=== PATIENT | female | born 1945 | race Caucasian/White ===

== ENCOUNTER 2022-09-01 09:48 | Emergency (ER) | payer MEDICARE, OTHER ==
--- NOTE | 2022-09-01 10:31 | ED Physician Documentation ---
History of Present Illness - Stated complaint Stated Complaint: VERTIGO, L ARM NUMBESS - Chief complaint Chief Complaint: General - History obtained from History obtained from: Patient - Additonal information Additional information: 77-year-old woman who is very healthy albeit has not seen a doctor in about 20 years developed vertigo that is nonpositional about 2 weeks ago. At the time she was traveling to [facility] and was seen at a hospital in [place] there and had a CT and MRI done without pertinent positive findings. It is not clear if the CT was with or without contrast or CT angiography. Subsequently she was noted to have elevated blood pressures and was started on hydrochlorothiazide and and sent home. She has persistent vertigo. She now notes that she cannot hear out of the left ear, the left arm is clumsy and she has difficulty walking. She feels like the left side of her face is numb. 3 days ago she was switched from HCTZ to lisinopril and that is when the facial numbness started. She denies headache. No history of vertigo. Meclizine has been ineffective. Review of Systems Ten Systems: 10 systems reviewed and negative Constitutional: denies: Fever, Chills Ears: reports: Loss of hearing. denies: Drainage/discharge Nose: denies: Rhinorrhea / runny nose Throat: denies: Sore throat PD PAST MEDICAL HISTORY - Present Medications Home Medications: Ambulatory Orders Medication Instructions Recorded Confirmed Atorvastatin Calcium 40 mg PO DAILY #14 tablet 09/01/22 - Allergies Allergies/Adverse Reactions: Allergies Allergy/AdvReac Type Severity Reaction Status Date / Time No Known Drug Allergies Allergy Verified 09/01/22 10:07 PD ED PE NORMAL - Vitals Vital signs reviewed: Yes - General General: Alert and oriented X 3, No acute distress - HEENT HEENT: PERRL, Ears normal (TMs are normal), Pharynx benign, Other (She has nystagmus looking in either direction.) - Neck Neck: Supple, no meningeal sign, No bony TTP - Cardiac Cardiac: RRR, No murmur - Respiratory Respiratory: No respiratory distress, Clear bilaterally - Abdomen Abdomen: Normal bowel sounds, Soft, Non tender - Back Back: No CVA TTP, No spinal TTP - Derm Derm: Normal color, Warm and dry - Neuro Neuro: Alert and oriented X 3, No motor deficit, Other (She has ataxia both the left upper and lower extremity with maintained strength. She has partial numbness of the left face.) Eye Opening: Spontaneous Motor: Obeys Commands Verbal: Oriented GCS Score: 15 Results - Vitals Vitals: Vital Signs - 24 hr 09/01/22 09/01/22 10:04 10:40 Temperature 36.9 C Heart Rate 103 H 85 Respiratory 16 14 Rate Blood Pressure 188/123 H 166/100 H O2 Saturation 98 97 Oxygen O2 Source Room air - EKG (time done) 1133 Rate: Rate (enter#) (79) Rhythm: NSR, LAE Mcgraws: LAD Intervals: Normal CT QRS: Normal Ischemia: Non specific changes - Labs Labs: Laboratory Tests 09/01/22 09/01/22 09/01/22 10:35 10:35 10:35 WBC 7.7 RBC 5.56 H Hgb 16.3 H Hct 48.5 H MCV 87.2 MCH 29.3 MCHC 33.6 RDW 12.6 Plt Count 265 MPV 11.0 H Neut # (Auto) 5.5 Lymph # (Auto) 1.4 L [place] # (Auto) 0.6 Eos # (Auto) 0.2 Baso # (Auto) 0.0 Absolute Nucleated RBC 0.00 Nucleated RBC % 0.0 PT 10.9 INR 1.0 Sodium 137 Potassium 3.2 L Chloride 104 Carbon Dioxide 22 Anion Gap 11.0 BUN 22 H Creatinine 0.8 Estimated GFR (MDRD) 70 L Glucose 185 H Calcium 9.3 Magnesium 2.2 Total Bilirubin 0.8 AST 18 ALT 11 Alkaline Phosphatase 65 Total Protein 6.8 Albumin 3.7 Globulin 3.1 Albumin/Globulin Ratio 1.2 - Rads (name of study) Ct Head Radiology: Final report received, EMP read indepedently, See rad report PD Medical Decision Making - ED course ED course: 77-year-old woman presents with her son for evaluation of ongoing vertigo now associated with ataxia in the left upper and lower extremity. She also has truncal ataxia on exam and nystagmus. Despite the negative MRI at the onset of her symptoms, these findings are very concerning for posterior CVA. Subsequently her son was able to find some records from the previous ED visit in [place]. She did have CT angiography so I do not see any point in repeating angiography studies today. Unfortunately because the holiday is being observed today we do not have MRI which would of course be the preferred test for her symptoms consistent with posterior stroke. 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 We will let her have permissive hypotension hypertension for the next couple of weeks, add a statin and aspirin. Given that the stroke is completed there is no indication for admission to the hospital but she will need intensive outpatient physical therapy and she has follow-up scheduled with a nurse practitioner in [place] next week. We administered a walker here and she did fine with that. 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 Hopefully your symptoms will improve but I do recommend starting physical therapy which I have written an order for. Follow-up with nurse practitioner Bubba next week as scheduled. In addition to the prescription for the anticholesterol medication you should also take a baby aspirin a day. You will need an MRI and follow-up but given that we see the lesion on CT no rose to doing that. You should restart the lisinopril in about 2 weeks. Return for new or worsening symptoms. NIHSS - Time Time: 10:20 - Level of Consciousness Level of consciousness: (0) Alert, Keenly responsive LOC Questions: (0) Answers both Q's correct LOC Commands: (0) Performs both correctly - Gaze Best Gaze: (0) Normal - Visual Visual: (0) No loss - Facial Palsy Facial Palsy: (0) Normal, symmetrical movement - Motor Arms (both separate) Motor Arm (right): (0) No drift Motor Arm (left): (0) No drift - Motor Legs (both separate) Motor Leg (right): (0) No drift Motor Leg (left): (0) No drift - Limb Ataxia Limb Ataxia: (2) Present in 2 limbs - Sensory Sensory: (1) [id number] loss - Best Language Best Language: (0) No aphasia - Dysarthria Dysarthria: (0) Normal - Extinction and Inattention (formally neg Extinction and inattention: (0) No abnormality - Total Score/Results Total Score/Result: 3
[2022-09-01 10:43] LABS: BASOPHILS % (AUTO) 0.5 %; EOSINOPHILS # (AUTO) 0.2 10^3/uL (0.0-0.7); EOSINOPHILS % (AUTO) 2.8 %; HCT - HEMATOCRIT 48.5 % (37.0-47.0); HGB - HEMOGLOBIN 16.3 g/dL (12.0-16.0); LYMPHOCYTES # (AUTO) 1.4 10^3/uL (1.5-3.5); LYMPHOCYTES % (AUTO) 18.3 %; MEAN CORPUSCULAR HEMOGLOBIN 29.3 pg (27.0-31.0); MEAN CORPUSCULAR HGB CONC 33.6 g/dL (32.0-36.0); MEAN CORPUSCULAR VOLUME 87.2 fL (81.0-99.0); MONOCYTES # (AUTO) 0.6 10^3/uL (0.0-1.0); MONOCYTES % (AUTO) 7.5 %; NEUTROPHILS # (AUTO) 5.5 10^3/uL (1.5-6.6); NEUTROPHILS % (AUTO) 70.8 %; PLT - PLATELET COUNT 265 10^3/uL (130-450); RED BLOOD COUNT 5.56 10^6/uL (4.20-5.40); RED CELL DISTRIBUTION WIDTH 12.6 % (12.0-15.0); WHITE BLOOD COUNT 7.7 x10^3/uL (4.8-10.8)
[2022-09-01 10:50] LABS: PT - PROTHROMBIN TIME 10.9 secs (9.9-12.6)
[2022-09-01 10:56] LABS: ALBUMIN 3.7 g/dL (3.2-5.5); ALBUMIN/GLOBULIN RATIO 1.2 (1.0-2.2); BILIRUBIN,TOTAL 0.8 mg/dL (0.2-1.0); CALCIUM 9.3 mg/dL (8.5-10.3); CREATININE 0.8 mg/dL (0.4-1.0); MAGNESIUM 2.2 mg/dL (1.7-2.8); POTASSIUM 3.2 mmol/L (3.5-5.0); TOTAL PROTEIN 6.8 g/dL (6.7-8.2)
--- NOTE | 2022-09-01 11:44 | CT Report ---
PROCEDURE: HEAD WO INDICATIONS: cva sx TECHNIQUE: Noncontrast 4.5 mm thick angled axial sections acquired from the foramen magnum to the vertex. For r adiation dose reduction, the following was used: automated exposure control, adjustment of mA and/or kV according to patient size. COMPARISON: None. FINDINGS: Image quality: Excellent. CSF spaces: Basal cisterns are patent. No extra-axial fluid collections. Ventricles are normal in size and shape. Brain: No midline shift. No intracranial masses or hemorrhage. Lockhart-white matter interface is norm al. Skull and face: Calvarium and visualized facial bones are intact, without suspicious lesions. Sinuses: Visualized sinuses and mastoids are clear. IMPRESSION: No acute intracranial finding. Reviewed by: Franky Chao MD on 09/01/2022 11:43 AM PST Approved by: Franky Chao MD on 09/01/2022 11:43 AM [facility] Station ID: [id number]
[2022-09-01 12:49] VITALS: BP 140/88
== END 2022-09-01 12:48 | disposition home or self-care (01) ==
LOC: ED 09:48
DX: I63.442 Cerebral infarction due to embolism of left cerebellar artery (principal); R29.703 NIHSS score 3; R03.0 Elevated blood-pressure reading, without diagnosis of hypertension
CPT/HCPCS: 36415; 80053; 83735; 85025; 85610; 93005; 99284

== ENCOUNTER 2022-09-20 09:32 | Outpatient (CLI) | payer MEDICARE, OTHER ==
--- NOTE | 2022-09-25 12:56 | MRI Report ---
PROCEDURE: BRAIN WO INDICATIONS: FACIAL WEAKNESS LATE EFFECT OF STROKE TECHNIQUE: Noncontrast axial T1 spin echo, axial T2 fast spin echo, sagittal and axial FLAIR, coronal T2 fast sp in echo, axial gradient echo, axial diffusion and ADC through the brain. COMPARISON: Head CT 09/01/2022 FINDINGS: Increased T2/FLAIR signal intensity with T2 shine through on the diffusion weighted images and develo ping ADC pseudonormalization, consistent with a late subacute infarct. No additional focus of restric fredy diffusion or increased DWI signal intensity. Mild global cerebral volume loss. Moderate chronic m icrovascular ischemic changes. No unexpected intracranial susceptibility. No significant orbital abno rmality. Paranasal sinuses and mastoid air cells predominantly clear. IMPRESSION: T2 hyperintense signal abnormality in the left cerebellar hemisphere and left inferior cerebellar ped uncle would be consistent with a late subacute infarct although an intra-axial neoplasm could cause a similar appearance. Recommend obtaining postcontrast follow-up T1-weighted MRI sequences. Reviewed by: Franky Chao MD on 09/25/2022 12:55 PM PST Approved by: Franky Chao MD on 09/25/2022 12:55 PM PST Station ID: [id number]
== END 2022-09-20 09:33 | disposition home or self-care (01) ==
LOC: DI 09:32
PROVIDERS: ATTEND Nurse Practitioner Acute Care
DX: I69.392 Facial weakness following cerebral infarction (principal)

== ENCOUNTER 2022-10-09 09:11 | Outpatient (CLI) | payer MEDICARE, OTHER ==
[2022-10-09 14:24] LABS: BASOPHILS # (AUTO) 0.1 10^3/uL (0.0-0.1); BASOPHILS % (AUTO) 0.7 %; EOSINOPHILS # (AUTO) 0.6 10^3/uL (0.0-0.7); EOSINOPHILS % (AUTO) 8.8 %; HCT - HEMATOCRIT 48.9 % (37.0-47.0); HGB - HEMOGLOBIN 15.5 g/dL (12.0-16.0); LYMPHOCYTES # (AUTO) 1.5 10^3/uL (1.5-3.5); LYMPHOCYTES % (AUTO) 22.4 %; MEAN CORPUSCULAR HEMOGLOBIN 29.2 pg (27.0-31.0); MEAN CORPUSCULAR HGB CONC 31.7 g/dL (32.0-36.0); MEAN CORPUSCULAR VOLUME 92.3 fL (81.0-99.0); MEAN PLATELET VOLUME 11.6 fL (7.9-10.8); MONOCYTES # (AUTO) 0.5 10^3/uL (0.0-1.0); MONOCYTES % (AUTO) 6.6 %; NEUTROPHILS # (AUTO) 4.2 10^3/uL (1.5-6.6); NEUTROPHILS % (AUTO) 61.2 %; PLT - PLATELET COUNT 293 10^3/uL (130-450); RED CELL DISTRIBUTION WIDTH 13.1 % (12.0-15.0); WHITE BLOOD COUNT 6.8 x10^3/uL (4.8-10.8)
[2022-10-09 15:06] LABS: ALBUMIN 3.7 g/dL (3.2-5.5); ALBUMIN/GLOBULIN RATIO 1.1 (1.0-2.2); ALKALINE PHOSPHATASE 157 IU/L (42-121); ALT ALANINE AMINOTRANSFERASE 23 IU/L (10-60); AST ASPARTATE AMINOTRANSFERASE 23 IU/L (10-42); BILIRUBIN,TOTAL 0.9 mg/dL (0.2-1.0); BUN - BLOOD UREA NITROGEN 11 mg/dL (6-20); CALCIUM 10.1 mg/dL (8.5-10.3); CARBON DIOXIDE - CO2 25 mmol/L (21-32); CHLORIDE 107 mmol/L (101-111); CHOL/HDL RATIO 3.8 (<4.4); CHOLESTEROL 191 mg/dL; CREATININE 0.7 mg/dL (0.4-1.0); GFR - MDRD 81 (>89); GLUCOSE 111 mg/dL (70-100); HDL CHOLESTEROL 50 mg/dL; LDL CHOLESTEROL,CALCULATED 114 mg/dL; LDL/HDL RATIO 2.3 (<4.4); POTASSIUM 4.4 mmol/L (3.5-5.0); SODIUM 143 mmol/L (135-145); TOTAL PROTEIN 7.1 g/dL (6.7-8.2); TRIGLYCERIDES 133 mg/dL; VLDL CHOLESTEROL 27 mg/dL
[2022-10-09 15:18] LABS: THYROID STIMULATING HORMONE 1.13 uIU/mL (0.34-5.60)
[2022-10-09 21:03] LABS: ESTIMATED AVERAGE GLUCOSE 128 mg/dL (70-100); HEMOGLOBIN A1c% 6.1 % (4.27-6.07)
== END 2022-10-09 09:12 | disposition home or self-care (01) ==
LOC: LAB.S 09:11
PROVIDERS: ATTEND Nurse Practitioner Acute Care
DX: I10 Essential (primary) hypertension (principal); Z13.228 Encounter for screening for other metabolic disorders; Z13.220 Encounter for screening for lipoid disorders; Z13.1 Encounter for screening for diabetes mellitus; Z13.29 Encounter for screening for other suspected endocrine disorder; Z13.0 Encounter for screening for diseases of the blood and blood-forming organs and certain disorders involving the immune mechanism
CPT/HCPCS: 36415; 80053; 80061; 83036; 83721; 84443; 85025

== ENCOUNTER 2022-10-15 11:43 | Outpatient (CLI) | payer MEDICARE, OTHER ==
[2022-10-15 12:18] LABS: CREATININE 0.8 mg/dL (0.4-1.0)
[2022-10-15] MEDS ORDERED: GADOBUTROL 7.5 MMOL/7.5 ML VIAL ONE (12:47)
[2022-10-15] MEDS ORDERED: GADOBUTROL 7.5 MMOL/7.5 ML VIAL IVP ONE (15:26)
--- NOTE | 2022-10-15 18:32 | MRI Report ---
PROCEDURE: MRI brain with and without contrast INDICATIONS: FACIAL PALSY CONTRAST: gadavist 6.4 TECHNIQUE: Noncontrast axial T1 spin echo, axial T2 fast spin echo, sagittal and axial FLAIR, coronal T2 fast sp in echo, axial gradient echo, axial diffusion and ADC through the brain. After the administration of contrast, axial and coronal T1 spin echo with fat saturation through the brain. COMPARISON: MRI brain 09/20/2022, 08/20/2022 FINDINGS: Image quality: Excellent. CSF spaces: Basal cisterns are patent. No extra-axial fluid collections. Ventricles are normal in size and shape. Brain: Centered on the left middle cerebral peduncle, there is increasing T2 signal again with T2 sh ine through artifact noted on the diffusion sequence. No appreciable enhancement. There is involvemen t of the root entry zone of the left 7th and 8th cranial nerve complex at the cerebellopontine angle. Otherwise, no midline shift. Normal intravascular flow voids are present. 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 Skull and face: Calvarial marrow is normal in signal. Orbits appear normal. Sinuses: Sinuses and mastoids appear clear. IMPRESSION: 1. Increasing irregular T2 signal in the left middle cerebral peduncle without significant enhancemen t. Given the chronology and location, low-grade glioma is a concern, although sequelae of infarct is also possible. Consider follow-up MR spectroscopy and/or three-month follow-up. Reviewed by: Madan Brumfield MD on 10/15/2022 5:30 PM [place] Approved by: Madan Brumfield MD on 10/15/2022 5:30 PM [place] Station ID: [id number]
== END 2022-10-15 11:44 | disposition home or self-care (01) ==
LOC: LAB 11:43
PROVIDERS: ATTEND Nurse Practitioner Acute Care
DX: G51.0 Bell's palsy (principal); R94.02 Abnormal brain scan
CPT/HCPCS: 36415; 70553; 82565; A9585

== ENCOUNTER 2022-10-20 15:13 | Outpatient (CLI) | payer MEDICARE, OTHER | END 2022-10-20 15:14 | disposition home or self-care (01) | LOC: MAC.MOP 15:13 | PROVIDERS: ATTEND Nurse Practitioner Acute Care | DX: I49.9 Cardiac arrhythmia, unspecified (principal) | CPT/HCPCS: 93242 ==

== ENCOUNTER 2022-11-13 13:22 | Outpatient (CLI) | payer MEDICARE, OTHER | END 2022-11-13 13:23 | disposition home or self-care (01) | LOC: MAC.INF 13:22 | PROVIDERS: ATTEND Psychiatry & Neurology Neurology | DX: I49.9 Cardiac arrhythmia, unspecified (principal); I47.1 Supraventricular tachycardia; I49.1 Atrial premature depolarization; I49.3 Ventricular premature depolarization | CPT/HCPCS: 93244 ==

== ENCOUNTER 2022-11-26 14:41 | Outpatient (CLI) | payer MEDICARE, OTHER | END 2022-11-26 14:42 | disposition home or self-care (01) | LOC: DI 14:41 | PROVIDERS: ATTEND Psychiatry & Neurology Neurology | DX: I63.9 Cerebral infarction, unspecified (principal) | CPT/HCPCS: 93306 ==

== ENCOUNTER 2023-09-23 08:47 | Outpatient (CLI) | payer MEDICARE, OTHER ==
[2023-09-23 14:44] LABS: BASOPHILS % (AUTO) 0.3 %; EOSINOPHILS # (AUTO) 0.3 10^3/uL (0.0-0.7); EOSINOPHILS % (AUTO) 4.9 %; HCT - HEMATOCRIT 44.9 % (37.0-47.0); HGB - HEMOGLOBIN 14.2 g/dL (12.0-16.0); LYMPHOCYTES # (AUTO) 2.1 10^3/uL (1.5-3.5); LYMPHOCYTES % (AUTO) 32.7 %; MEAN CORPUSCULAR HEMOGLOBIN 29.6 pg (27.0-31.0); MEAN CORPUSCULAR HGB CONC 31.6 g/dL (32.0-36.0); MEAN CORPUSCULAR VOLUME 93.5 fL (81.0-99.0); MEAN PLATELET VOLUME 11.4 fL (7.9-10.8); MONOCYTES # (AUTO) 0.4 10^3/uL (0.0-1.0); MONOCYTES % (AUTO) 6.7 %; NEUTROPHILS # (AUTO) 3.6 10^3/uL (1.5-6.6); NEUTROPHILS % (AUTO) 55.1 %; PLT - PLATELET COUNT 262 10^3/uL (130-450); RED CELL DISTRIBUTION WIDTH 12.5 % (12.0-15.0); WHITE BLOOD COUNT 6.5 x10^3/uL (4.8-10.8)
[2023-09-23 15:09] LABS: ALBUMIN 4.1 g/dL (3.2-5.5); ALBUMIN/GLOBULIN RATIO 1.5 (1.0-2.2); ALKALINE PHOSPHATASE 58 IU/L (42-121); ALT ALANINE AMINOTRANSFERASE 13 IU/L (10-60); AST ASPARTATE AMINOTRANSFERASE 19 IU/L (10-42); BILIRUBIN,TOTAL 0.5 mg/dL (0.2-1.0); BUN - BLOOD UREA NITROGEN 14 mg/dL (6-20); CALCIUM 9.1 mg/dL (8.5-10.3); CARBON DIOXIDE - CO2 27 mmol/L (21-32); CHLORIDE 107 mmol/L (101-111); CHOL/HDL RATIO 2.7 (<4.4); CHOLESTEROL 178 mg/dL; CREATININE 0.8 mg/dL (0.6-1.3); GFR - MDRD 70 (>89); GLUCOSE 107 mg/dL (74-104); HDL CHOLESTEROL 67 mg/dL; LDL CHOLESTEROL,CALCULATED 89 mg/dL; LDL/HDL RATIO 1.3 (<4.4); POTASSIUM 3.9 mmol/L (3.5-4.5); SODIUM 140 mmol/L (135-145); TOTAL PROTEIN 6.9 g/dL (6.4-8.9); TRIGLYCERIDES 112 mg/dL (48-352); VLDL CHOLESTEROL 22 mg/dL
[2023-09-23 23:33] LABS: ESTIMATED AVERAGE GLUCOSE 117 mg/dL (70-100); HEMOGLOBIN A1c% 5.7 % (4.27-6.07)
[2023-09-24 08:50] LABS: THYROID STIMULATING HORMONE 1.54 uIU/mL (0.34-5.60)
== END 2023-09-23 08:48 | disposition home or self-care (01) ==
LOC: LAB.S 08:47
PROVIDERS: ATTEND Nurse Practitioner Acute Care
DX: I10 Essential (primary) hypertension (principal); Z13.228 Encounter for screening for other metabolic disorders; Z13.220 Encounter for screening for lipoid disorders; Z13.1 Encounter for screening for diabetes mellitus; Z13.29 Encounter for screening for other suspected endocrine disorder; Z13.0 Encounter for screening for diseases of the blood and blood-forming organs and certain disorders involving the immune mechanism
CPT/HCPCS: 36415; 80053; 80061; 83036; 83721; 84443; 85025